=== PATIENT | female | born 1995 | race Caucasian/White ===

== ENCOUNTER 2018-12-27 13:25 | Emergency (ER) | payer OTHER ==
[~2018-12-27] VITALS: Ht 157.5 cm; Wt 59.4 kg
[2018-12-27 13:31] VITALS: Ht 157.5 cm; Wt 59.4 kg
[2018-12-27 14:01] VITALS: BP 107/73
== END 2018-12-27 14:01 | disposition home or self-care (01) ==
LOC: ED 13:25
DX: R21 Rash and other nonspecific skin eruption (principal); Z98.890 Other specified postprocedural states